=== PATIENT | male | born 1955 | race African-American/Black ===

== ENCOUNTER → 2025-03-16 | Day surgery (SDC) | payer MEDICARE, MEDICAID ==
[~2025-03-16] VITALS: Ht 170.2 cm; Wt 100.2 kg
[~2025-03-16] MED LIST: ACETAMINOPHEN 1000MG/100ML 100 ML IV ONE; ALBUTEROL 6.7GM HFA INHALER ONE; BUPIVACAINE HCL/PF 0.5% (5MG/ML) 10ML ONE; CLINDAMYCIN 900MG PREMIX 50 ML IV ONE; DEXAMETHASONE 4MG/ML 1ML VIAL ONE; DIPHENHYDRAMINE 50MG/ML VIAL ONE; FAMOTIDINE 20MG/2ML VIAL IV ONE; FENTANYL CITRATE/PF 50MCG/ML 2ML VIAL ONE; GLIM1TAB55 PO; HYDROCODONE/ACETAMINOPHEN 5/325MG TABLET PO PRN; INDOCYANINE GREEN 25 MG VIAL IV ONE; IOHEXOL-300 100 ML BOTTLE ONE; LABETALOL 5MG/ML 4ML INJ IV PRN; LIDOCAINE HCL 1% 10 MG/ML 10ML VIAL ONE; LIDOCAINE HCL 1% 20ML VIAL ONE; METF-416 PO; METOCLOPRAMIDE HCL 10MG/2ML VIAL ONE; ONDANSETRON HCL 4MG/2ML INJ IV PRN; ONDANSETRON HCL 4MG/2ML INJ ONE; POLYMYXIN B SULFATE 500000 UNITS/VIAL ONE; PROPOFOL 200MG/20ML VIAL IV ONE; ROCURONIUM BROMIDE 10MG/ML VIAL 5ML IV ONE; SEMA2PEN IJ; SKIN ADHESIVE 0.7 GM EA TOP ONE; SODIUM CHLORIDE 0.9% 1,000 ML IV SCH
[2025-03-16] MEDS: HYDROMORPHONE HCL/PF 1MG/ML INJ IV PRN (11:11)
[2025-03-16 11:47] VITALS: BP 182/99; PULSE 79; RESP 20
== END | disposition home or self-care (01) ==
LOC: OR 05:10
PROVIDERS: ATTEND Specialist
DX: K80.10 Calculus of gallbladder with chronic cholecystitis without obstruction (principal); I10 Essential (primary) hypertension; E78.5 Hyperlipidemia, unspecified; E11.9 Type 2 diabetes mellitus without complications; Z79.84 Long term (current) use of oral hypoglycemic drugs; Z79.85 Long-term (current) use of injectable non-insulin antidiabetic drugs; Z88.6 Allergy status to analgesic agent; Z79.899 Other long term (current) drug therapy; Z98.890 Other specified postprocedural states; Z87.891 Personal history of nicotine dependence; Z88.8 Allergy status to other drugs, medicaments and biological substances
CPT/HCPCS: 47562; 82962; 88304; J3010; Q9967; J0131; J0665; J3490 ×4; J1100; J1200; J1308; J2003 ×2; J2765; J2405; J2704; J1171; J7120; Q9957